=== PATIENT | female | born 1940 | race Caucasian/White ===

== ENCOUNTER 2023-10-24 10:00 | Emergency (ER) | payer MEDICARE ==
[~2023-10-24] VITALS: Ht 172.7 cm; Wt 65.9 kg
[2023-10-24 10:16] VITALS: TEMP 97.8
[2023-10-24] MEDS: TETanus/Pertussis (Acell)/Diphther VAC/PF (Tdap-Adult) 0.5ml syringe IMVAC ONE (10:57)
[2023-10-24] MEDS: LIDOcaine/epinephrine/tetracaine TOPICAL sol 3 ML syringe TOP ONE (11:19)
[2023-10-24 12:15] VITALS: BP 164/79; PULSE 89; RESP 16; O2SAT 94
== END 2023-10-24 12:29 | disposition home or self-care (01) ==
LOC: ER 10:00
DX: S01.81XA Laceration without foreign body of other part of head, initial encounter (principal); F03.90 Unspecified dementia, unspecified severity, without behavioral disturbance, psychotic disturbance, mood disturbance, and anxiety; Z87.81 Personal history of (healed) traumatic fracture; Z91.013 Allergy to seafood; Z91.040 Latex allergy status; Z98.890 Other specified postprocedural states; W19.XXXA Unspecified fall, initial encounter; Y93.89 Activity, other specified; Y92.89 Other specified places as the place of occurrence of the external cause; Y99.8 Other external cause status
CPT/HCPCS: 70450; 72125; 90471; 90715; 99285; J3490